=== PATIENT | male | born 1985 | race Asian ===

== ENCOUNTER → 2020-09-19 11:53 | Outpatient (BNVA) | payer OTHER, SELFPAY | PROVIDERS: Visit Provider Internal Medicine | DX: Z77.21 Contact with and (suspected) exposure to potentially hazardous body fluids (principal) | CPT/HCPCS: 36415; 84450; 84460; 86706; 86803; 99203 ==

== ENCOUNTER → 2020-10-31 11:21 | Outpatient (BNVA) | payer OTHER, SELFPAY | DX: Z77.21 Contact with and (suspected) exposure to potentially hazardous body fluids (principal) | CPT/HCPCS: 36415; 84450; 84460; 87389; 99211 ==

== ENCOUNTER → 2020-12-19 15:41 | Outpatient (BNVA) | payer OTHER, SELFPAY | DX: Z02.79 Encounter for issue of other medical certificate (principal) | CPT/HCPCS: 36415; 84450; 84460; 86803; 87389; 99211 ==